=== PATIENT | female | born 2000 ===

== ENCOUNTER → 2022-02-27 | Outpatient (REF) | payer BC | LOC: M LAB REF 09:48 | PROVIDERS: ATTEND Physician Assistant | DX: N39.0 Urinary tract infection, site not specified (principal) ==

== ENCOUNTER → 2022-03-20 | Outpatient (REF) | payer BC | LOC: M LAB REF 18:21 | PROVIDERS: ATTEND Internal Medicine | DX: N39.0 Urinary tract infection, site not specified (principal) ==